=== PATIENT | female | born 1990 | race Two or more races ===

== ENCOUNTER → 2017-05-09 | Emergency (ER) | payer MEDICAID ==
--- NOTE | 2017-05-09 20:11 | NUR ---
CALLED PT IN [place], NO RESPONSE
--- NOTE | 2017-05-09 20:19 | NUR ---
2ND CALL FOR PT. [address] [employer]PERVISOR STATED "PT LEFT". WILL TRY THIRD TIME
--- NOTE | 2017-05-09 20:45 | NUR ---
3RD CALL. NO ANSWER. TAKING OUT OF SYSTEM
== END | disposition left against medical advice (07) ==
LOC: ER 20:05
DX: Z53.21 Procedure and treatment not carried out due to patient leaving prior to being seen by health care provider (principal)